=== PATIENT | male | born 1970 | race Hispanic/Latino ===

== ENCOUNTER 2022-08-25 09:54 | Emergency (ER) | payer OTHER ==
[~2022-08-25] VITALS: Ht 157.5 cm; Wt 81.6 kg
[2022-08-25 10:48] VITALS: BP 129/83
[2022-08-25] MEDS ORDERED: HYD25 PO (11:00)
== END 2022-08-25 11:09 | disposition home or self-care (01) ==
LOC: EDH 09:54
DX: F41.9 Anxiety disorder, unspecified (principal); I10 Essential (primary) hypertension